=== PATIENT | female | born 2000 | race Caucasian/White ===

== ENCOUNTER 2022-02-27 14:09 | Observation (INO) ==
[2022-02-27] MEDS ORDERED: SODIUM CHLORIDE 0.9% 1000ML 1,000 ML IV ONE (14:21)
--- NOTE | 2022-02-27 14:23 | Emergency Department Note ---
History of Present Illness General Chief complaint: Overdose (Intentional) Time Seen by Provider: 02/27/22 14:10 Source: patient and EMS Mode of arrival: EMS History of Present Illness Provider complaint: Drug overdose Onset (ago): hour(s) Location: abdomen Pain Consistency: + now resolved Quality: + other (Overdosed on 8 clonidine tablets at 0.1 mg each) Exacerbated By: + other (Fight with boyfriend) Associated symptoms: + weakness; no chest pain, no cough, no fever/chills, no nausea/vomiting, no shortness of breath or no syncope This is a 21-year-old female with a history of mood disorder presenting after an intentional overdose occurring sometime between 1230 and 1 PM today. The patie nt got into a fight with her boyfriend and took her boyfriends clonidine. She took a total of 8 tablets. The tablets are 0.1 mg each. She states she feels lightheaded but otherwise has no other symptoms. She denies any prior history of suicide although she states that she has had suicidal ideation in the past. She denies any drug or alcohol use. She denies any fever, cough or cold symptoms, chest pain, shortness of breath, abdominal pain, vomiting, diarrhea or urinary symptoms. She does have a therapist and takes Prozac for her depression. She has been admitted in the past to a mental health facility for depression. She is also on metoprolol for history of mitral valve prolapse. Sh e states that she did not take more of this medication than prescribed. Home Medications Medication Instructions Recorded Confirmed Type fluoxetine 10 mg tablet 10 mg PO DAILY 02/27/22 02/27/22 History metoprolol succinate 100 mg 100 mg PO DAILY 02/27/22 02/27/22 History tablet,extended release 24 hr Allergies Allergy/AdvReac Type Severity Reaction Status Date / Time No Known Allergies Allergy Verified 02/27/22 14:58 Past Med/Surg History Medical History (Updated 02/27/22 @ 17:06 by Kilo Faria MD) Mitral valve prolapse Mood disorder Social History Smoking Status: Unknown if ever smoked marital status: Single Feels Safe at Home: Yes Review of Systems See HPI for pertinent positives & negatives. and A total of 10 systems reviewed and were otherwise negative Physical Exam Vital Signs Vital Signs - 24 hr 02/27/22 14:20 02/27/22 14:39 02/27/22 14:40 Temperature 36.8 C Temperature Source Oral Pulse Rate 49 L 52 L Pulse Rate [Apical] 48 L Pulse Rhythm Regular Pulse Rhythm [Apical] Regular Respiratory Rate 22 15 Respiratory Depth Normal Blood Pressure 105/66 Blood Pressure [Left Arm] 105/66 Blood Pressure Mean 79 Blood Pressure Mean [Left Arm] 79 Pulse Oximetry 100 100 Oxygen Delivery Method Room Air Room Air Room Air Sepsis Recent Fever Within 48 Hours No Sepsis New/Unexplained Change in Mental Status No Sepsis Action Taken by Nursing No Action Required 02/27/22 16:00 Temperature Temperature Source Pulse Rate Pulse Rate [Apical] 52 L Pulse Rhythm Pulse Rhythm [Apical] Regular Respiratory Rate 18 Respiratory Depth Normal Blood Pressure Blood Pressure [Left Arm] 109/60 Blood Pressure Mean Blood Pressure Mean [Left Arm] 76 Pulse Oximetry 100 Oxygen Delivery Method Room Air Sepsis Recent Fever Within 48 Hours Sepsis New/Unexplained Change in Mental Status Sepsis Action Taken by Nursing Constitutional: Vital signs reviewed. Eyes: Pupils are equal round reactive to light. Conjunctiva are noninjected. ENT: Pharynx is clear without erythema or exudate. Mucous membranes are dry.. Neck supple without meningeal signs. Respiratory: Clear to auscultation bilaterally. Breath sounds are equal bilaterally. Cardiovascular: Bradycardic. Heart rate 56. Regular rhythm. GI: Soft, nondistended and nontender. Bowel sounds are present. Musculoskeletal: No peripheral edema. No lower extremity tenderness. Integumentary: No cyanosis. or jaundice. Neurological: The patient is awake and alert. No focal deficits. Psychiatric: Flat affect. Not tearful. Course Administered Medications Discontinued Medications Sodium Chloride (Nss 1000ml) 1,000 mls @ 999 mls/hr IV .Q1H1M ONE Stop: 02/27/22 15:21 Last Infusion: 02/27/22 16:46 Dose: 0 mls/hr Documented by: [id number] Admin: 02/27/22 14:57 Dose: 999 mls/hr Documented by: [id number] Medical Decision Making Differential Diagnosis Suicide attempt, mood disorder, drug overdose, hypotension, bradycardia Medical Records Attestation: I reviewed the patient's medical records. I did perform a limited focused review of portions of the patient's old chart on the electronic medical record. The patient has had no prior visits to this hospital. Home Medications Current Medication List: was personally reviewed by me Laboratory Data Attestation: I reviewed the patient's lab results. Result diagrams: 02/27/22 14:38 02/27/22 14:38 Lab Results 02/27/22 02/27/22 02/27/22 Range/Units 14:38 14:38 14:38 WBC 5.44 (4.8-10.8) K/uL RBC 4.70 (4.2-5.4) M/uL Hgb 13.8 (12.0-16.0) g/dL POC Hgb (12.0-16.0) g/dl Hct 40.2 (37-47) % POC Hct (37-47) % MCV 85.5 (80-100) fL MCH 29.4 (25-34) pg MCHC 34.3 (32-36) g/dL RDW Std Deviation 39.8 (36.4-46.3) fL RDW Coeff of Shine 12.6 (11.5-14.5) % Plt Count 250 (130-400) K/uL MPV 9.4 (7.4-10.4) fL Immature Gran % (Auto) 0.2 % Neut % (Auto) 61.8 % Lymph % (Auto) 27.4 % [place] % (Auto) 8.5 % Eos % (Auto) 1.7 % Baso % (Auto) 0.4 % Neut # (Auto) 3.37 (1.4-6.5) K/uL Lymph # (Auto) 1.49 (1.2-3.4) K/uL [place] # (Auto) 0.46 (0.11-0.59) K/uL Eos # (Auto) 0.09 (0-0.5) K/uL Baso # (Auto) 0.02 (0-0.2) K/uL Immature Gran # (Auto) 0.01 (0.00-0.02) K/uL POC Sodium (135-144) mmol/L POC Potassium (3.3-5.0) mmol/L POC Chloride (101-112) mmol/L POC Total CO2 (24-31) mmol/L POC Anion Gap (16-25) mmol/L POC BUN (7-18) mg/dl POC Creatinine mg/dl POC Glucose (other) (70-99) mg/dl POC Ioniz Calcium Mark mmol/l TSH 4.939 H (0.300-4.500) uIu/ml HCG, Qual (Negative) Salicylates < 3.0 L (3.0-30) mg/dl Acetaminophen < 3 L (10-30) ug/ml Ethyl Alcohol mg/dL (<10.0) mg/dl SARS-CoV-2, RNA, NAAT (NEGATIVE) 02/27/22 02/27/22 02/27/22 Range/Units 14:38 14:38 14:48 WBC (4.8-10.8) K/uL RBC (4.2-5.4) M/uL Hgb (12.0-16.0) g/dL POC Hgb 13.6 (12.0-16.0) g/dl Hct (37-47) % POC Hct 40 (37-47) % MCV (80-100) fL MCH (25-34) pg MCHC (32-36) g/dL RDW Std Deviation (36.4-46.3) fL RDW Coeff of Shine (11.5-14.5) % Plt Count (130-400) K/uL MPV (7.4-10.4) fL Immature Gran % (Auto) % Neut % (Auto) % Lymph % (Auto) % [place] % (Auto) % Eos % (Auto) % Baso % (Auto) % Neut # (Auto) (1.4-6.5) K/uL Lymph # (Auto) (1.2-3.4) K/uL [place] # (Auto) (0.11-0.59) K/uL Eos # (Auto) (0-0.5) K/uL Baso # (Auto) (0-0.2) K/uL Immature Gran # (Auto) (0.00-0.02) K/uL POC Sodium 141 (135-144) mmol/L POC Potassium 4.1 (3.3-5.0) mmol/L POC Chloride 101 (101-112) mmol/L POC Total CO2 25 (24-31) mmol/L POC Anion Gap 20.0 (16-25) mmol/L POC BUN 12 (7-18) mg/dl POC Creatinine 0.6 mg/dl POC Glucose (other) 112 H (70-99) mg/dl POC Ioniz Calcium Mark 1.23 mmol/l TSH (0.300-4.500) uIu/ml HCG, Qual Negative (Negative) Salicylates (3.0-30) mg/dl Acetaminophen (10-30) ug/ml Ethyl Alcohol mg/dL < 10.0 (<10.0) mg/dl SARS-CoV-2, RNA, NAAT (NEGATIVE) 02/27/22 Range/Units Unknown WBC (4.8-10.8) K/uL RBC (4.2-5.4) M/uL Hgb (12.0-16.0) g/dL POC Hgb (12.0-16.0) g/dl Hct (37-47) % POC Hct (37-47) % MCV (80-100) fL MCH (25-34) pg MCHC (32-36) g/dL RDW Std Deviation (36.4-46.3) fL RDW Coeff of Shine (11.5-14.5) % Plt Count (130-400) K/uL MPV (7.4-10.4) fL Immature Gran % (Auto) % Neut % (Auto) % Lymph % (Auto) % [place] % (Auto) % Eos % (Auto) % Baso % (Auto) % Neut # (Auto) (1.4-6.5) K/uL Lymph # (Auto) (1.2-3.4) K/uL [place] # (Auto) (0.11-0.59) K/uL Eos # (Auto) (0-0.5) K/uL Baso # (Auto) (0-0.2) K/uL Immature Gran # (Auto) (0.00-0.02) K/uL POC Sodium (135-144) mmol/L POC Potassium (3.3-5.0) mmol/L POC Chloride (101-112) mmol/L POC Total CO2 (24-31) mmol/L POC Anion Gap (16-25) mmol/L POC BUN (7-18) mg/dl POC Creatinine mg/dl POC Glucose (other) (70-99) mg/dl POC Ioniz Calcium Mark mmol/l TSH (0.300-4.500) uIu/ml HCG, Qual (Negative) Salicylates (3.0-30) mg/dl Acetaminophen (10-30) ug/ml Ethyl Alcohol mg/dL (<10.0) mg/dl SARS-CoV-2, RNA, NAAT NEGATIVE (NEGATIVE) ECG Data Attestation: I personally reviewed and interpreted this ECG as follows: Indication: + bradycardia and + toxicologic Rate (beats per minute): 48 Rhythm: + sinus bradycardia ECG Intervals/blocks: + Normal QRS, + Normal QT and + Normal RI ECG [place]: + Normal ECG Findings: no PVCs Comparison ECG Date: no prior available MDM Narrative I did evaluate the patient as noted above. She is brought in by EMS after an intentional overdose on her boyfriend's clonidine. She took 8 tablets of clonidine at 0.1 mg each. She states she feels weak and lightheaded and is currently bradycardic. I did place an order for continuous cardiac monitoring. The monitor showed sinus bradycardia at a rate of 46 bpm. She is slightly hypotensive. She was given normal saline bolus IV. I did order and personally review the patient's 12-lead EKG as described above. She has sinus bradycardia without heart block or widening of the QRS or prolongation of QT interval. I did call [place] poison control who recommended supportive care with IV fluids. No further recommendations for medication were made. I did order a urine analysis. I did order and review the patient's blood work as noted in the electronic medical record. CBC is unremarkable without leukocytosis or anemia. Electrolytes are unremarkable. Serum test is negative. Toxicology screen for acetaminophen, salicylates and ethanol were negative. I did reassess the patient multiple times. She remains bradycardic with a heart rate of 46 at this time. She is mildly hypertensive although did improve slightly with the normal saline bolus. She does state that her dizziness is improved but she feels extremely tired. She will be admitted to the medical service and when she is medically cleared she can be evaluated by psychiatry. She again states that she is no longer suicidal. COVID testing is negative. The case was discussed with the hospitalist and rn case manager. Impression & Plan Intentional overdose of clonidine, Mood disorder, Bradycardia Discharge Plan Visit Data Chief Complaint: Overdose (Intentional) ED Provider: Kilo Faria Discharge Problem: Intentional overdose of clonidine, Mood disorder, Bradycardia Patient Disposition: Being Evaluated by Hospitalist Forms Stand Alone Forms: [facility], Suicide Prevention Resources Prescriptions Prescriptions: No Action fluoxetine [Prozac] 10 mg Tablet 10 mg PO DAILY RF: 0 metoprolol succinate 100 mg Tablet Extended Release 24 Hr 100 mg PO DAILY RF: 0 Referrals Referrals: PCP,NO [Physician] -
[2022-02-27 14:57] LABS: Basophils # (auto) 0.02 K/uL (0-0.2); Basophils % (auto) 0.4 %; Eosinophils # (auto) 0.09 K/uL (0-0.5); Eosinophils % (auto) 1.7 %; Hematocrit (blood only) 40.2 % (37-47); Hemoglobin 13.8 g/dL (12.0-16.0); Immature Granulocytes # (auto) 0.01 K/uL (0.00-0.02); Immature Granulocytes % (auto) 0.2 %; Lymphocytes # (auto) 1.49 K/uL (1.2-3.4); Lymphocytes % (auto) 27.4 %; Mean Corpuscular Hemoglobin 29.4 pg (25-34); Mean Corpuscular Hgb Conc 34.3 g/dL (32-36); Mean Corpuscular Volume 85.5 fL (80-100); Mean Platelet Volume 9.4 fL (7.4-10.4); Monocytes # (auto) 0.46 K/uL (0.11-0.59); Monocytes % (auto) 8.5 %; Neutrophils # (auto) 3.37 K/uL (1.4-6.5); Neutrophils % (auto) 61.8 %; Platelet Count 250 K/uL (130-400); RDW Coefficient of Variation 12.6 % (11.5-14.5); RDW Standard Deviation 39.8 fL (36.4-46.3); White Blood Count 5.44 K/uL (4.8-10.8)
[2022-02-27 15:01] LABS: iSTAT Creatinine 0.6 mg/dl; iSTAT Hemoglobin 13.6 g/dl (12.0-16.0); iSTAT Ionized Calcium 1.23 mmol/l; iSTAT Potassium 4.1 mmol/L (3.3-5.0)
[2022-02-27 15:28] LABS: Acetaminophen < 3 ug/ml (10-30); Salicylate < 3.0 mg/dl (3.0-30)
[2022-02-27 16:30] LABS: Pregnancy Test, Serum Negative (Negative)
[2022-02-27 17:12] LABS: Thyroid Stimulating Hormone 4.939 uIu/ml (0.300-4.500)
[2022-02-27 18:02] LABS: Alanine Aminotransferase 11 U/L (7-52); Albumin Globulin Ratio 1.7 (0.9-2); Albumin Level 4.3 gm/dl (3.4-5.0); Alkaline Phosphatase 53 U/L (34-104); Anion Gap 5 (3-11); BUN Creatinine Ratio 19.6 (10-20); Bilirubin,Total 0.5 mg/dl (0.2-1.0); Blood Urea Nitrogen 11 mg/dl (6-23); Calcium 9.1 mg/dl (8.5-10.1); Carbon Dioxide 27 mmol/L (21-32); Chloride 106 mmol/L (98-107); Creatinine Clr Calc Pharmacy 174.7 ml/min; Est GFR (African American) > 150.0 ml/min; Est GFR (Non-African American) 135.2 ml/min; Globulin 2.6 gm/dl (2.5-4.0); Glucose 109 mg/dl (70-99(Fasting)); Sodium 138 mmol/L (136-145); Total Protein 6.9 gm/dl (6.0-8.3)
--- NOTE | 2022-02-27 18:06 | History & Physical Report ---
Date of Service February 27, 2022 Assessment & Plan (1) Intentional overdose of clonidine: Plan: As per HPI- ~8 tabs of Clonidine 0.1mg ingested around 1300 - T1/2 6-10 hours - Continue with LR at 110ml per hour - Telemetry monitoring- bradycardia- is reported with toxicity- Consider dopamine fixed rate if hemodynamic instability occurs - Hypotension common- as above follow continue with crystalloid infusion - Neurological exams q4 hours - Respiratory depression and apnea common- EtCO2 monitoring overnight. - Suicide precautions- patient currently states she feels safe and normally does not have suicidal thoughts- continue 1:1 through PM - psych consultation placed- appreciate evaluation - Urine tox screen evaluate for other agents- without AGA with BMP (2) Bradycardia: Plan: As above qTC normal (3) Depression: Plan: Continue Prozac - as above (4) Mitral valve prolapse: Plan: History since childhood- follows with [facility] - Hold Metoprolol evening dose- follow hemodynamics- likely able to restart in AM History of Present Illness Chief Complaint: intentional overdose Primary Care Provider: Bruce Still, DO 21 YOF with past medical history of: Mitral Valve Prolapse and inflamed aorta, depression. Patient states that [facility] [place] [facility] MVP and Aorta- she gets serial CT scans and ultrasounds performed. She follows with her PCP for her depression, but is enrolling with a psych group in the near future. Today the patient was brought in by EMS following a friend phone call secondary to the patient getting into an argument with her boyfriend and fearing that he was going to leave. She endorses that she took 8 tablets of his Clonidine 0.1mg tablets. This was taken at around 1300 today. She reports as well that she took her regular medications as her Metoprolol and her Prozac this morning. She denies any other drug use. She also denies that she normally feels depressed or has any suicidal thoughts or homicidal thoughts. In the EMD she was noted to be bradycardic to the 40s and is currently in the 50s without a ny ectopy, she has not been hypotensive or apneic. Hospitalist service was consulted for admission. She has not voided since she came to the [facility] and has received 1 liter of crystalloid. She had routine labs performed including Salicylate and Tylenol level and ETOH level drawn, which are negative. Awaiting the rest of urine tox screen. Patient will be admitted to PCU, continue with suicide precautions continue with IVF and monitor HR/BP and respirations and mental status Allergies Allergy/AdvReac Type Severity Reaction Status Date / Time No Known Allergies Allergy Verified 02/27/22 14:58 Home Medications Medication Instructions Recorded Confirmed Type fluoxetine 10 mg tablet 10 mg PO DAILY 02/27/22 02/27/22 History sulfamethoxazole 800 1 tab PO Q12 #5 tab 02/28/22 Rx mg-trimethoprim 160 mg tablet (Bactrim DS) Past Med/Surg History Medical History Mitral valve prolapse Mood disorder Family History Mother Depression Aunt Suicide Other Family history non-contributory Social History Smoking Status: Never smoker Hx Alcohol Use: No Hx Substance Use: No Preferred Language: Danish Communication Ability: Effective Core Driller Helper Required: No Beliefs That Will Affect Care: None marital status: Single Current Living Situation: Family Current Living Situation Comment: fiance and son Feels Safe at Home: Yes Assistive Devices: Glasses Review of Systems Review of Systems: REVIEW OF SYSTEMS: Constitutional: No fever, sweats or chills Eyes: No diplopia, no worsening or blurred vision ENT: normal hearing, no trouble swallowing Respiratory: No cough, sputum, dyspnea at rest or on exertion Cardiovascular: (+) valve prolapse, No chest pain, tightness or palpitations Abdomen: No pain, nausea, vomiting, diarrhea or constipation Musculoskeletal: No joint pain, calf pain, swelling Neurologic: No weakness, numbness/tingling, or balance problems Psychiatric: (+) depression Skin: No rash or itch Physical Exam Physical Exam: PHYSICAL EXAM: General: awake, alert, no apparent distress Head: Normocephalic, atraumatic ENT: PERRLA, EOMI, no pharyngeal exudate, mucous membranes dry Neuro: AAO x 3, speech clear and appropriate, some slurring of words, strength intact bilaterally 5/5, sensation intact and equal all extremities and dermatomes, no pronator drift Chest: equal rise and fall of the chest, no accessory muscle use, no heaves or thrills, Clear to auscultation, on room air, Cardiac: Regular rate and rhythm, telemetry reviewed- sinus bradycardia, skin warm dry, cap refill <3 seconds, peripheral pulses +2 no JVD, systolic murmur, no edema GI: NABS x 4 quadrants, soft, nontender to palpation, no rebound, guarding or tenderness : Spontaneously voiding, no pain, no CVA tenderness, Extremities: Normal inspection, no peripheral edema or erythema, calfs nontender to palpation Psych: Normal mood and affect Skin: no rash or erythema Results & Data Results & Data ([facility]) Vital Signs (Past 12 Hours) Vital Signs Temp Pulse Pulse Resp BP BP Pulse Ox 02/27/22 16:00 52 L 18 109/60 100 02/27/22 14:39 52 L 15 100 02/27/22 14:20 36.8 C 49 L 48 L 22 105/66 105/66 100 Laboratory Results Abnormal lab results 02/27/22 02/27/22 02/27/22 Range/Units 14:38 14:38 14:38 Creatinine 0.56 L (0.6-1.2) mg/dl Glucose 109 H (70-99(Fasting)) mg/dl POC Glucose (other) (70-99) mg/dl TSH 4.939 H (0.300-4.500) uIu/ml Salicylates < 3.0 L (3.0-30) mg/dl Acetaminophen < 3 L (10-30) ug/ml 02/27/22 Range/Units 14:48 Creatinine (0.6-1.2) mg/dl Glucose (70-99(Fasting)) mg/dl POC Glucose (other) 112 H (70-99) mg/dl TSH (0.300-4.500) uIu/ml Salicylates (3.0-30) mg/dl Acetaminophen (10-30) ug/ml Medications Administered Discontinued Medications Sodium Chloride (Nss 1000ml) 1,000 mls @ 999 mls/hr IV .Q1H1M ONE Stop: 02/27/22 15:21 Last Infusion: 02/27/22 16:46 Dose: 0 mls/hr Documented by: [id number] Admin: 02/27/22 14:57 Dose: 999 mls/hr Documented by: [id number] ECG Additional Comments: Sinus bradycardia Nonspecific ST abnormality Abnormal ECG No previous ECGs available Confirmed by Gui Mehta ([id number]) on 02/27/2022 2:26:23 PM QT/QTc 498/444 ms Code Status & VTE Plan Code Status CODE: FULL VTE: SCDS, ambulation Supervising Physician Co-Signing Physician Notes Attending addendum: I have physically seen this patient, have supervised the SANDRA's activities, and agree with the H&P unless as otherwise noted. Assessment and Plan: Intentional clonidine overdose- Monitor on telemetry for arrhythmias, in particular bradycardia Standard bradycardic interventions if needed LR at 100 mils per hour Neurochecks every 4 hours Monitor for respiratory depression and apnea Suicide precautions Consult psychiatry Remaining orders and notations as noted PG Care Time/CCT Total # of Minutes Spent Total Time Spent with Patient: Total time spent is greater than 50% in coordination of care (as documented) at patient's floor/unit and/or counseling patient: Coding Level of Care Code 00172 Initial Inpt Care Lvl 3 Diagnoses Intentional overdose of clonidine T46.5X2A Depression F32.A Bradycardia R00.1 Mitral valve prolapse I34.1
[2022-02-27 18:11] LABS: T4 Free Thyroxine 0.81 ng/dl (0.61-1.60)
[2022-02-27 18:20] LABS: Aspartate Aminotransferase 17 U/L (13-39); Potassium 4.1 mmol/L (3.5-5.1)
[2022-02-27 19:46] LABS: Appearance Urine Cloudy (Clear); Bacteria Urine Automated 4+ (Negative); Bilirubin Urine Negative (Negative); Blood Urine Negative (Negative); Color Urine Yellow; Glucose Urine UA Negative (Negative); Ketones Urine Negative (Negative); Leukocyte Esterase Urine 2+ (Negative); Nitrite Urine Negative (Negative); Protein Urine Negative (Negative); RBC Urine Automated 0-4 /hpf (0-4); Urobilinogen Urine Negative (Negative); WBC Urine Automated >30 /hpf (0-5)
[2022-02-27 20:25] LABS: Amphetamines+Metham, Urine Neg (Neg); Barbiturates, Urine Neg (Neg); Benzodiazepine, Urine Neg (Neg); Cocaine, Urine Neg (Neg); MDMA (Ecstacy), Urine Neg (Neg); Methadone, Urine Neg (Neg); Opiate, Urine Neg (Neg); Phencyclidine, Urine Neg (Neg)
[2022-02-27] MEDS: LACTATED RINGER'S 1,000 ML IV SCH (21:50)
[2022-02-28] MEDS: LACTATED RINGER'S 1,000 ML IV SCH ×2 (06:28→15:33)
--- NOTE | 2022-02-28 07:32 | Hospitalist Progress Note ---
Date of Service February 28, 2022 Assessment & Plan (1) Intentional overdose of clonidine: Admission and Anticipated Discharge Date Admission Date: February 27, 2022 Results & Data Results & Data ([facility]) Vital Signs (Past 12 Hours) Vital Signs Temp Pulse Pulse Resp BP BP BP 02/28/22 06:59 36.6 C 72 16 96/54 L 02/28/22 03:43 36.6 C 51 L 16 127/81 02/27/22 23:28 36.5 C 48 L 14 108/63 02/27/22 22:20 49 L 02/27/22 20:11 36.5 C 60 20 116/80 02/27/22 19:57 51 L 02/27/22 19:40 84 60 17 116/80 Pulse Ox 02/28/22 06:59 98 02/28/22 03:43 97 02/27/22 23:28 99 02/27/22 22:20 02/27/22 20:11 100 02/27/22 19:57 02/27/22 19:40 100
[2022-02-28 08:07] LABS: Basophils # (auto) 0.01 K/uL (0-0.2); Basophils % (auto) 0.2 %; Eosinophils # (auto) 0.07 K/uL (0-0.5); Eosinophils % (auto) 1.6 %; Hematocrit (blood only) 39.7 % (37-47); Hemoglobin 13.6 g/dL (12.0-16.0); Immature Granulocytes # (auto) 0.01 K/uL (0.00-0.02); Immature Granulocytes % (auto) 0.2 %; Lymphocytes # (auto) 1.26 K/uL (1.2-3.4); Lymphocytes % (auto) 28.5 %; Mean Corpuscular Hgb Conc 34.3 g/dL (32-36); Mean Corpuscular Volume 84.6 fL (80-100); Mean Platelet Volume 9.2 fL (7.4-10.4); Monocytes # (auto) 0.29 K/uL (0.11-0.59); Monocytes % (auto) 6.6 %; Neutrophils # (auto) 2.78 K/uL (1.4-6.5); Neutrophils % (auto) 62.9 %; Platelet Count 209 K/uL (130-400); RDW Coefficient of Variation 12.6 % (11.5-14.5); RDW Standard Deviation 38.1 fL (36.4-46.3); Red Blood Count 4.69 M/uL (4.2-5.4); White Blood Count 4.42 K/uL (4.8-10.8)
[2022-02-28 08:29] LABS: Anion Gap 3 (3-11); Blood Urea Nitrogen 7 mg/dl (6-23); Calcium 8.8 mg/dl (8.5-10.1); Carbon Dioxide 28 mmol/L (21-32); Chloride 107 mmol/L (98-107); Est GFR (African American) > 150.0 ml/min; Est GFR (Non-African American) 140.3 ml/min; Glucose 96 mg/dl (70-99(Fasting)); Magnesium 1.8 mg/dl (1.7-2.4); Potassium 4.4 mmol/L (3.5-5.1); Sodium 138 mmol/L (136-145)
[2022-02-28] MEDS ORDERED: FLUoxetine HCL 10 MG CAP PO SCH (09:00)
[2022-02-28] MEDS ORDERED: SULFAMETHOXAZOLE/TRIMETHOPRIM DS 800/160MG TAB PO SCH (11:00)
--- NOTE | 2022-02-28 14:44 | Psychiatric Consultation ---
Date of Consultation February 28, 2022 Impression / Recommendations Impression This is a 21 yo admitted medically following an impulsive suicide attempt. Diagnostically consistent with adjustment reaction in context of argument with fiance and feeling of rejection. PHQ-9 score consistent with moderate depression but she has consistently denied SI and today reports stable mood and remains eager to engage with therapy and reviewed option to discuss increasing her fluoxetine dose with her PCP should depressive symptoms not improve or worsen. Acute risk of self-harm is low given denial of SI, stable mood, future-oriented, help seeking, hopeful and regrets attempt. Chronic risk is moderate given impulsivity, sensitivity to rejection, prior psych hospitalizations, depression but also with many protective factors including caring for young child, supportive partner, friends, good insight, and outpatient providers. Counseled on ways to reduce acute and chronic risk including engaging with outpatient providers, using safety plan if needed, utilizing supports, taking medication, and using coping skills. Modifiable risk factors of SI has resolved and she engaged insightfully and actively with safety planning. Does not desire inpatient psych treatment and does not meet 302 criteria as denies SI/HI/ no clay, no psychosis. (1) Adjustment disorder with emotional disturbance: -From psychiatric standpoint safe for discharge once medically stable -can d/c 1:1 -safety plan reviewed as well as crisis resources and counseled to return to ED should SI re-occur or mood worsen and she feel unable to remain safe in outpt setting -c/w fluoxetine 10mg qd Risk Factors Assessment : Yes Do You Have Access To A Gun?: No Health Problems: No Mental Health Diagnoses: Yes Substance Use Disorders: No Previous Attempt: No Family History of Suicide: Yes Previous Psychiatric Hospitalization: Yes Hopelessness: No Smoker: No Protective Factors Assessment Responsible for Young Children: Yes Stable Relationships: Yes Supportive Family: Yes Good Rapport with Provider: Yes Psych History Identifying Data 21 yo woman with history of depression admitted medically after an impulsive suicide attempt. Psychiatry was consulted for risk assessment. Chief Complaint "I wasn't thinking, I immediately regretted it and got help". History of Present Illness Jeanette was admitted medically after impulsively taking 8 tabs of her fiance's clonidine 0.1 mg tabs after they had an argument and she thought he was going to leave her. She states she "wasn't thinking" and immediately regretted taking the pills and tried to throw up and when she couldn't reached out to her friends to call an ambulance. She denies SI and is happy to be alive. She notes many strong deterrents to suicide and reasons to live including her 10 mo old son Sumanth and her fiance Brad. She states they are now in a good place and that "I misread the situation I thought he was leaving me but actually he was just going to his aunt's to get mandujano because we were supposed to go to [place] today". She feels safe at home and wishes to return home. She does not desire inpatient psych treatment. She states "It was a bad lapse of judgment" but she feels she has other things she can do should she feel upset or fear rejection in the future. No prior suicide attempts. PHQ-9 score of 11, Q9 was 0. Psychiatric ROS notable for denial of HI, no hx suicide attempts, two prior psych hospitalizations for depression and SI, no current self-harm, no hx clay, no hx psychosis. She takes fluoxetine 10mg which she feels helps with her depression and is prescribed by her PCP. She has an upcoming therapy appointment on Saturday. She has no access to guns. She completed a safety plan and we reviewed this and she was also counseled on securing medications which her fiance has already done by placing all medications in the home in a lock box and he will observe her taking her fluoxetine. Reviewed crisis resources. Further history per psych liason notes on 02/27/22 and 02/28/22: "Met with pt for initial psych consultation. Consulted post intentional overdose of (8) tabs of Clonidine 0.1mg. Pt stated she impulsively took the overdose after she got into a fight with her fiance'. When asked what the altercation was about, pt replied, "I don't even remember now." Pt stated they reconciled since then. She denies the overdose was a suicide attempt but rather, "I'll show him" action. She states she immediately regretted overdose and attempted to make herself vomit, and when she was unable to do so, she had her friend call the ambulance. She denies any hx of SA/SIB. She is currently denying any SI. She states she was starting to feel more depressed and was going to call her PCP to see if they could increase her dosage. Pt is currently prescribed Prozac 10mg po daily. Her PCP, Dr. Still, prescribes this. She stated she started Prozac after the of her child. She states she has an upcoming appt for therapy through [facility] and believes it is with "Sana". She states her friends were present in the home at the time of the overdose. She does report prior inpatient psych treatment at [facility] in 2019 for SI and at [facility] in May 2020 for SI. She denies access to weapons or guns. Denies substance use. Denies legal issues. Reports her maternal Aunt completed suicide. She is currently denying any SI. She states if inpatient psychiatric hospitalization is indicated she would sign herself in "depending on where it is". PHQ-9=11. question #9=0. MARIA EUGENIA's will be obtained for outpatient providers. Pt is denying any further needs at this time. Updated pt that she would see psychiatric provider tomorrow." "Patient was provided with safety plan document to complete. Appointments with both her outpatient therapist as well as PCP were confirmed for 03/02 @1130, and 03/08 @ 1120, respectively." Past Psychiatric History Previous Psych History: see [facility] Previous Psych Admissions: 2019 [facility], [facility] May 2020 Do You Have Access To A Gun?: No Past Medication Trials: zoloft in 2019 Allergies Allergy/AdvReac Type Severity Reaction Status Date / Time No Known Allergies Allergy Verified 02/27/22 14:58 Home Medications Medication Instructions Recorded Confirmed Type fluoxetine 10 mg tablet 10 mg PO DAILY 02/27/22 02/27/22 History metoprolol succinate 100 mg 100 mg PO DAILY 02/27/22 02/27/22 History tablet,extended release 24 hr Family History maternal aunt by suicide Personal History Living Arrangements: Home Beliefs That Will Affect Care: None Patient History Medical History Mitral valve prolapse Mood disorder Family History Mother Depression Aunt Suicide Other Family history non-contributory Social History Smoking Status: Never smoker Hx Alcohol Use: No Hx Substance Use: No Preferred Language: Icelandic Communication Ability: Effective Floral Specialist Required: No Beliefs That Will Affect Care: None marital status: Single Current Living Situation: Family Current Living Situation Comment: fiance and son Feels Safe at Home: Yes Safety Concerns: Feels Safe At This Time Assistive Devices: Glasses Physical Exam Psychiatric: Orientation: alert and oriented x 3 Apperance: appropriately dressed and appropriately groomed Eye Contact: good eye contact Motor Behavior: no abnormal motor movements Speech: normal rate/rhythm/volume of speech Affect: euthymic affect Mood: no depressed mood Thought Process: goal directed thought process Thought Content: reality based without delusio ns Suicidal Thoughts: denies suicidal thoughts Homicidal Thoughts: denies homicidal thoughts Hallucinations: no auditory hallucinations and no visual hallucinations Cognition: recent memory grossly intact, remote memory grossly intact, attention grossly intact and language grossly intact Estimated Intelligence: consistent with education level Insight: + fair insight Judgement: + fair judgement Vital Signs (Past 24 Hours): Last Vital Signs Temp 36.8 C 02/28/22 10:58 Pulse 55 L 02/28/22 10:58 Resp 18 02/28/22 10:58 BP 95/53 L 02/28/22 10:58 Pulse Ox 98 02/28/22 10:58 Review of Systems All systems reviewed & are unremarkable except as noted in HPI & below Results & Data (PSY) Medications Administered Fluoxetine HCl (Fluoxetine Hcl 10 Mg Cap) 10 mg PO DAILY [facility] Stop: 03/30/22 08:59 Last Admin: 02/28/22 08:20 Dose: 10 mg Documented by: [id number] Lactated Ringer's (Lr) 1,000 mls @ 110 mls/hr IV .[id number] CHARLA Stop: 03/29/22 17:59 Last Admin: 02/28/22 06:28 Dose: 110 mls/hr Documented by: [id number] Infusion: 02/28/22 06:28 Dose: 110 mls/hr Documented by: [id number] Admin: 02/27/22 21:50 Dose: 110 mls/hr Documented by: [id number] Trimethoprim/Sulfamethoxazole (Sulfamethoxazole/Trimethoprim Ds 800/160mg Tab) 1 tab PO Q12 CHARLA; Protocol Stop: 03/05/22 10:59 Last Admin: 02/28/22 11:24 Dose: 1 tab Documented by: [id number] Coding Level of Care Code 81735 Inpt Consult Level 4 Diagnoses Adjustment disorder with emotional disturbance F43.29 Time Spent (min) 35
--- NOTE | 2022-02-28 15:38 | Electrocardiogram Report ---
Test Reason : Blood Pressure : / mmHG Vent. Rate : 063 BPM Atrial Rate : 063 BPM P-R Int : 162 ms QRS Dur : 088 ms QT Int : 450 ms P-R-T Axes : 028 042 -19 degrees QTc Int : 460 ms Normal sinus rhythm Prolonged QT Abnormal ECG When compared with ECG of 27-FEB-2022 14:17, Inverted T waves have replaced nonspecific T wave abnormality in Anterior leads Confirmed by Gui Mehta ([id number]) on 02/28/2022 3:38:14 PM Referred By: REFERRED SELF Confirmed By:Ariel Mehta
--- NOTE | 2022-02-28 18:47 | Discharge Summary ---
Date of Service February 28, 2022 Admission HPI Per Admitting Provider 21 YOF with past medical history of: Mitral Valve Prolapse and inflamed aorta, depression. Patient states that she [facility] [place] for her MVP and Aorta- she gets serial CT scans and ultrasounds performed. She follows with her PCP for her depression, but is enrolling with a psych group in the near future. Today the patient was brought in by EMS following a friend phone call secondary to the patient getting into an argument with her boyfriend and fearing that he was going to leave. She endorses that she took 8 tablets of his Clonidine 0.1mg tablets. This was taken at around 1300 today. She reports as well that she took her regular medications as her Metoprolol and her Prozac this morning. She denies any other drug use. She also denies that she normally feels depressed or has any suicidal thoughts or homicidal thoughts. In the [facility] she was noted to be bradycardic to the 40s and is currently in the 50s without any ectopy, she has not been hypotensive or apneic. Hospitalist service was consulted for admission. She has not voided since she came to the [facility] and has received 1 liter of crystalloid. She had routine labs performed including Salicylate and Tylenol level and ETOH level drawn, which are negative. Awaiting the rest of urine tox screen. Patient will be admitted to PCU, continue with suicide precautions continue with IVF and monitor HR/BP and respirations and mental status Admission Exam Per Admitting Provider General: awake, alert, no apparent distress Head: Normocephalic, atraumatic ENT: PERRLA, EOMI, no pharyngeal exudate, mucous membranes dry Neuro: AAO x 3, speech clear and appropriate, some slurring of words, strength intact bilaterally 5/5, sensation intact and equal all extremities and dermatomes, no pronator drift Chest: equal rise and fall of the chest, no accessory muscle use, no heaves or thrills, Clear to auscultation, on room air, Cardiac: Regular rate and rhythm, telemetry reviewed- sinus bradycardia, skin warm dry, cap refill <3 seconds, peripheral pulses +2 no JVD, systolic murmur, no edema GI: NABS x 4 quadrants, soft, nontender to palpation, no rebound, guarding or tenderness : Spontaneously voiding, no pain, no CVA tenderness, Extremities: Normal inspection, no peripheral edema or erythema, calfs nontender to palpation Psych: Normal mood and affect Skin: no rash or erythema Principal Diagnosis Intentional clonidine overdose Discharge Exam Constitutional: well-appearing, no acute distress, laying in hospital bed CV: regular rhythm, no murmur appreciated, extremities well-perfused Resp: CTABL, breathing non-labored Neuro: alert, oriented, no focal neurologic deficit appreciated Appearance: fairly-groomed, wearing paper gown Behavior: calm, cooperative, eye contact good Mood: "good" Affect: pleasant, affect congruent with mood Speech: appropriate rate/quantity/volume Thought process: linear, coherent Thought content: appropriate to topic of discussion, denies SI/HI Discharge Data Allergies Allergy/AdvReac Type Severity Reaction Status Date / Time No Known Allergies Allergy Verified 02/27/22 14:58 Consultations 02/27/22 17:18 ED Decision to Admit Stat 02/27/22 20:09 Consult Psychiatry Routine 02/27/22 20:31 Consult Behavioral Health Liaison Routine Hospital Course (1) Intentional overdose of clonidine: Clonidine overdose Upon admission, patient was noted with intermittent hypotension (low around 90/40) and bradycardia (low of 48). Patient was placed on IVF but did not require any additional pressure support. On hospital day two, patient's bradycardia resolved, and pressures had improved though they remained a bit soft. On hospital day two, patient was felt to be no longer at risk of clonidine toxicity. Patient was discharged on hospital day two in stable condition. PCP follow-up was recommended. Parasuicidal behavior Psychiatry was consulted; their assessment is as follows: This is a 21 yo admitted medically following an impulsive suicide attempt. Diagnostically consistent with adjustment reaction in context of argument with fiance and feeling of rejection. PHQ-9 score consistent with moderate depression but she has consistently denied SI and today reports stable mood and remains eager to engage with therapy and reviewed option to discuss increasing her fluoxetine dose with her PCP should depressive symptoms not improve or worsen. Acute risk of self-harm is low given denial of SI, stable mood, future-oriented, help seeking, hopeful and regrets attempt. Chronic risk is moderate given impulsivity, sensitivity to rejection, prior psych hospitalizations, depression but also with many protective factors including caring for young child, supportive partner, friends, good insight, and outpatient providers. Counseled on ways to reduce acute and chronic risk including engaging with outpatient providers, using safety plan if needed, utilizing supports, taking medication, and using coping skills. Modifiable risk factors of SI has resolved and she engaged insightfully and actively with safety planning. Does not desire inpatient psych treatment and does not meet 302 criteria as denies SI/HI/ no clay, no psychosis. As a result, inpatient psychiatric hospitalization was not pursued. Patient was deemed safe for discharge on hospital day two. PCP follow-up was recommended. Mitral valve prolapse Patient's history of MVP was noted on admission, as was her home regimen of metoprolol succinate 100mg daily. Due to intermittent bradycardia and hypotension, patient's metoprolol was held on admission. Upon discharge, on hospital day two, patient continued to have slightly soft pressures, and so patient was instructed to temporarily discontinue her metoprolol until she is able to discuss this further with her PCP. Follow-up with PCP within one week of discharge was encouraged. Urinary tract infection UA on admission showed evidence of UTI; urine culture grew Gram negative bacilli. Patient was started on bactrim on hospital day two. Upon discharge, patient was provided with 5x bactrim tablets to complete a total three-day course of treatment. Depression Patient's home prozac was continued during this hospitalization. Total Time Total Time Spent Total Time Spent (In Minutes): see attending documentation Discharge Plan Discharge Items Patient Disposition: Home - Self-Care Reason For Visit: INTENTIONAL OVERDOSE- BRADYCARDIA Discharge Diagnosis: clonidine overdose Activity: Resume your previous activity Non-emergency contact: Primary Care Provider and Psychiatrist Call non-emergency contact if: you have any medication questions and your symptoms worsen Follow-up/Referrals: Bruce Still, [Primary Care Provider] - (Scheduled for 03/08/2022) Diet: Regular Addtl Attending Provider Instructions: You were admitted to the hospital for an intentional overdose of clonidine. We monitored your vital signs to ensure your blood pressure did not drop too low. You were also seen by psychiatry, who feels it is safe for you to return home. A discharge summary will be sent to your primary care physician to ensure cont inuity of care. Please bring this discharge summary with you to your next office appointment so that your provider can review it at that time. Follow-up appointments: You have an appointment with your counselor on 03/02 at 11:30am. If you are unable to make this appointment or have any questions, please contact their office. You have an appointment with your family physician on 03/08 at 11:20am. If you are unable to make this appointment or have any questions, please contact their office. Keep all your follow-up appointments as already scheduled. If you cannot make an appointment, notify your provider. Medications: Your medication list has been reviewed and reconciled upon discharge to ensure accuracy and continuity of care. An updated list of all your medications is included with your hospital discharge paperwork. Please review this list closely, and make note of any changes. * We sent a new medication called bactrim to your pharmacy. This is to treat your urinary tract infection. Take one tablet twice daily for three more days (one tab in the evening on 02/28, then one tab twice daily on 03/01 and 03/02. * We recommend temporarily stopping your metoprolol. Do not take metoprolol until you follow up with your primary care physician. Your primary care physician will help determine when it is safe to start this medicine again. If you have any issues filling these prescriptions, please call [phone] and ask to leave a message for Dr. Quinton Campos. Take your medications as instructed; do not skip a dose of your medicines. Make sure all of your doctors know every medicine you are taking (including hogn-efk-yujkxcm medicines, vitamins, and supplements). Call your primary care provider before taking any new medicines (including sowm-cfi-[id number] medicines, vitamins, and supplements), because some of these may interact with your current medications, or may make your symptoms worse. Tell your primary care provider if you cannot afford your medications. CONTACT YOUR PRIMARY CARE PROVIDER if you experience any of the following: Thoughts of suicide Racing thoughts, worsening anxiety, or worsening depression Difficulty following your treatment plan, or difficulty taking medications CALL 911 OR GO TO THE EMERGENCY DEPARTMENT if you experience any of the following: Sudden, severe abdominal pain or nausea/vomiting Severe chest pain, or chest pain that radiates (moves) to your jaw or arm Sudden, severe shortness of breath or difficulty breathing Thank you for allowing us to participate in your care. Pending Studies at Discharge: No Stand-Alone Forms: [facility] Medications and DC Order Prescriptions: New sulfamethoxazole-trimethoprim [Bactrim DS] 800-160 mg Tablet 1 tab PO Q12 Qty: 5 RF: 0 Continued fluoxetine 10 mg Tablet 10 mg PO DAILY RF: 0 Discontinued metoprolol succinate 100 mg Tablet Extended Release 24 Hr 100 mg PO DAILY RF: 0 Discharge Orders: Discharge Order (Routine); Ordered 02/28/22 Ordered By: Quinton Garcia/Other Patient Handouts: Journaling for Mental Health, Depression: Tips to Help Yourself Admission Data Admit Date/Time: 02/27/22 18:26 Attending Provider: Denise Olivarez Admit Provider: Chong Shay Primary Care Provider: Bruce Still Other Providers: Chong Shay ; Janee Leon ; Kiki Morel ; Kianna Barrios Other Interventions: Discharge Summary Assessment (RN) Last Done: 02/28/22 16:39 Supervising Physician Co-Signing Physician Notes Patient seen and examined with PGY-2 Dr. Campos. Agree with history, exam findings, assessment and plan of care as outlined. In brief, Jeanette is a 21 year old female with history of depression and mitral valve prolapse admitted with intentional overdose of clonidine. Labs and EKG unremarkable. Vital signs were monitored and remained stable in addition to cardiac monitoring. Has been asymptomatic. Evaluated by psychiatry. Safety plan developed. She has an appointment with therapist on Saturday. Medically stable for discharge this afternoon. I personally spent 25 minutes dischage planning for this pateint. Resident Activity Tracking Resident Involvement: Resident Care Provided Care Provided: Adult Hospital Medicine
== END 2022-02-28 18:37 | disposition home or self-care (01) ==
LOC: ED 14:09 → 2E 18:26 → INTOOBSV 18:26 → SUATTDRO 18:26 → 2E 19:40